=== PATIENT | male | born 1950 | race Hispanic/Latino ===

== ENCOUNTER → 2019-05-18 | Outpatient (CLI) | payer OTHER | END | disposition home or self-care (01) | LOC: EEVIPCON 09:41 → RAH 09:41 | PROVIDERS: ATTEND Internal Medicine | DX: R16.1 Splenomegaly, not elsewhere classified (principal); K76.89 Other specified diseases of liver; I85.00 Esophageal varices without bleeding; K44.9 Diaphragmatic hernia without obstruction or gangrene; K74.60 Unspecified cirrhosis of liver; K57.90 Diverticulosis of intestine, part unspecified, without perforation or abscess without bleeding | CPT/HCPCS: 76700 ==